=== PATIENT | female | born 1975 | race Caucasian/White ===

== ENCOUNTER 2019-04-22 19:42 | Emergency (ER) | payer MEDICARE, OTHER ==
[~2019-04-22] VITALS: Ht 154.9 cm; Wt 72.6 kg
[2019-04-22 20:01] VITALS: BP_SYST 148
--- NOTE | 2019-04-22 20:12 | NUR ---
Patient to ER bed 06 to gown for evaluation. Side rails up. Report given to Joy WILLINGHAM.
--- NOTE | 2019-04-22 20:16 | NUR ---
Pt presents to ER with c/o painful bump on L buttocks. Pt A&Ox4. Pt states she sat down to use restroom and noticed pain on left butt cheek. Pt states she looked in mirror and "thought it was a butt pimple." Pt states she popped "butt pimple" and "clear liquid came out." Pt states it did not go away and the pain has gotten worse. Pt states pain 10/10. Pt states she took Alieve at 10 am with no relief. Upon assessment, red discoloration and swelling noted with no discharge. Will continue to monitor.
--- NOTE | 2019-04-22 20:16 | NUR ---
Note undone in EDM - 04/22/19 at 2043 by PRAKASH Pt presents to ER with c/o painful bump on L buttocks. Pt states she sat down to use restroom and noticed pain on left butt cheek. Pt states she looked in mirror and "thought it was a butt pimple." Pt states she popped "butt pimple" and "clear liquid came out." Pt states it did not go away and the pain has gotten worse. Pt states pain 10/10. Pt states she took Alieve at 10 am with no relief. Upon assessment, red discoloration and swelling noted with discharge. Will continue to monitor.
--- NOTE | 2019-04-22 20:27 | NUR ---
ER Dr. Rush at bedside examining patient.
[2019-04-22] MEDS ORDERED: SULFAMETHOXAZOLE/TRIMETHOPR DS 1 TABLET PO ONE (20:45)
[2019-04-22] MEDS ORDERED: HYDROcodone/ACETAMIN 7.5-325 MG TAB PO ONE (20:45)
--- NOTE | 2019-04-22 20:55 | NUR ---
Pt medicated per MD orders. Pt tolerated well. Will continue to monitor.
[2019-04-22 21:05] VITALS: BP_SYST 140
--- NOTE | 2019-04-22 21:05 | NUR ---
Patient given written and verbal discharge instructions and verbalizes understanding. ER MD Rush discussed with patient the results and treatment provided. Patient in stable condition. ID arm band removed. Rx of norco, bactrim, and ibuprofen given. Patient educated on pain management and to follow up with PMD. Pain Scale 6/10. MD Rush aware and instructed to discharge with daughter driving. Opportunity for questions provided and answered. Medication side effect fact sheet provided.
== END 2019-04-22 21:05 | disposition home or self-care (01) ==
LOC: SED 19:42
DX: L03.317 Cellulitis of buttock (principal); E11.9 Type 2 diabetes mellitus without complications
CPT/HCPCS: 99283

== ENCOUNTER 2019-04-25 16:06 | Emergency (ER) | payer OTHER ==
[~2019-04-25] VITALS: Ht 154.9 cm; Wt 72.6 kg
[2019-04-25 16:19] VITALS: BP_SYST 144
--- NOTE | 2019-04-25 16:20 | NUR ---
Patient triaged and placed in waiting room. VSS and patient appears in no acute distress at this time. Awaiting available bed, and MD notified of need for MSE.
--- NOTE | 2019-04-25 16:30 | NUR ---
Patient to ER bed 05 for evaluation. Side rails up.
--- NOTE | 2019-04-25 16:34 | NUR ---
ER Dr. Peraza at bedside examining patient.
--- NOTE | 2019-04-25 16:40 | NUR ---
Patient AAO x 4 ambulates to ER bed 05 with complaints of 10/10 pain to abscess of L buttock. She took Motrin at 1100 with no pain relief. Patient was seen at [facility] on Tuesday night and was discharged with a Rx for Bactrim and Hastings. She reports that the Hastings makes her feel nauseous and has decided to discontinue this medication. Even chest rise and fall with respirations. Will continue to monitor.
[2019-04-25] MEDS ORDERED: LIDOCAINE 1% 10 MG/ML, 20 ML MDV INJ ONE (17:00)
[2019-04-25] MEDS ORDERED: LIDOCAINE MPF 1% 50 MG/5 ML AMP INJ ONE (17:00)
[2019-04-25] MEDS ORDERED: fentaNYL CITRATE/PF 100 MCG/2 ML AMP IM ONE (17:00)
[2019-04-25 18:08] VITALS: BP_SYST 124
--- NOTE | 2019-04-25 18:08 | NUR ---
Patient given written and verbal discharge instructions and verbalizes understanding. ER MD Dr. Peraza discussed with patient the results and treatment provided. Patient in stable condition. ID arm band removed.Rx of Tramadol given. Patient educated on pain management and to follow up with PMD. Pain Scale 5/10. Opportunity for questions provided and answered. Medication side effect fact sheet provided.
== END 2019-04-25 18:08 | disposition home or self-care (01) ==
LOC: SED 16:06
DX: L02.31 Cutaneous abscess of buttock (principal)
CPT/HCPCS: 10060; 96372; 99284; J2001; J3010

== ENCOUNTER 2019-06-04 17:12 | Emergency (ER) | payer OTHER ==
[~2019-06-04] VITALS: Ht 154.9 cm; Wt 73.9 kg
[2019-06-04 17:41] VITALS: BP_SYST 138
--- NOTE | 2019-06-04 17:41 | NUR ---
Patient triaged and placed in waiting room. VSS and patient appears in no acute distress at this time. Accompanied by daughter, awaiting available bed, and MD notified of need for MSE.
--- NOTE | 2019-06-04 19:25 | NUR ---
Maria Alejandra douglas in [facility] - 06/04/19 at 1929 by [email or web address] ADAL Fair examining patient.
--- NOTE | 2019-06-04 19:25 | NUR ---
Patient to ER chair to guerrero for evaluation.
--- NOTE | 2019-06-04 19:27 | NUR ---
PATIENT COMPLAINS OF INSECT BITE TO RIGHT FOREARM X 2 DAYS WORSENING. DENIES ANY OTHER COMPLAINTS/INJURIES PER PATIENT OR NOTED. WILL CONTINUE TO MONITOR.
--- NOTE | 2019-06-04 19:28 | NUR ---
ADAL Fair examining patient.
[2019-06-04] MEDS: CEPHALEXIN 500 MG CAPSULE PO ONE (20:00)
[2019-06-04] MEDS: SULFAMETHOXAZOLE/TRIMETHOPR DS 1 TABLET PO ONE (20:00)
[2019-06-04] MEDS: CLINDAMYCIN PHOSPHATE 300 MG/2 ML VIAL IM ONE (20:04)
--- NOTE | 2019-06-04 20:06 | NUR ---
medicated per MORTGAGE OR LOAN UNDERWRITER orders.
--- NOTE | 2019-06-04 20:14 | NUR ---
Patient given written and verbal discharge instructions and verbalizes understanding. ER COMPUTER INFORMATION SCIENCE PROFESSOR GUILLE discussed with patient the results and treatment provided. Patient in stable condition. ID arm band removed. Rx of MUPIROCIN, CLINDAMYCIN, MOTRIN given. Patient educated on pain management and to follow up with PMD. Pain Scale 0/10 Opportunity for questions provided and answered. Medication side effect fact sheet provided.
[2019-06-04 20:26] VITALS: BP_SYST 128
== END 2019-06-04 20:26 | disposition home or self-care (01) ==
LOC: SED 17:12
DX: S51.852A Open bite of left forearm, initial encounter (principal); W57.XXXA Bitten or stung by nonvenomous insect and other nonvenomous arthropods, initial encounter; Y93.89 Activity, other specified; Y92.89 Other specified places as the place of occurrence of the external cause; Y99.8 Other external cause status
CPT/HCPCS: 81025; 82962; 96372; 99283; J3490